=== PATIENT | male | born 1985 | race Caucasian/White ===

== ENCOUNTER → 2016-10-30 | Outpatient (CLI) | payer OTHER ==
--- NOTE | 2016-10-30 17:37 | DI ---
RIGHT SHOULDER, 10/30/2016 4:12 PM: Clinical History: Right anterior shoulder pain. Previous Exam: None at this facility. 4 views are submitted. There is no acute soft tissue, osseous, or joint abnormality. The visualized p ortions of the right lung including the apex are normal. Reading: Normal right shoulder exam.
== END ==
LOC: RAD 16:17
DX: M25.511 Pain in right shoulder (principal); F17.210 Nicotine dependence, cigarettes, uncomplicated
CPT/HCPCS: 73030

== ENCOUNTER → 2016-12-12 | Outpatient (CLI) | payer OTHER ==
--- NOTE | 2016-12-12 17:33 | DI ---
MRI RIGHT SHOULDER SCAN, 12/12/2016 7:57 AM: Clinical History: Unspecified rotator cuff tear. Previous Exam: None at this facility. Technique: Axial, coronal, and sagittal fat saturated PD; axial gradient FE; coronal fat saturatedT2 weighted; sagittal T2 weighted. There is no soft tissue edema or joint effusion. A small amount of fluid is in the subacromion bursa. There is only minimal arthrosis present in the patient has a type I acromion. There is tendinosis of the supraspinatus muscle with a small focal area of hyperintensity within the tendon substance consi stent with a small interstitial tear that would not be visible at arthroscopy. There is a similar sma ll interstitial tear in the conjoined tendon. Mild arthrosis is present in the infraspinatus tendon. The teres minor tendon is normal. There is an articular surface partial tear of the subscapularis ten don just at the insertion on the humeral head. There is a longitudinal tear or split in the tendon of the long head of the biceps muscle from the proximal humerus extending superiorly into the rotator i nterval but not extending to the biceps anchor. There is no subluxation of the tendon indicating the biceps jose l is intact. There is absence of the anterosuperior portion of the labrum with a high att achment of the anterior limb of the IGHL. The remainder of the labrum is normal. There is no muscle a trophy. Readin. There is a small articular surface tear of the subscapularis tendon near the attachment to the hu meral head and this measures approximately 4 x 6 mm in transverse and longitudinal measurements. Ther e is a longitudinal split in the tendon of the long head of the biceps muscle in the extra-articular portion and extending superiorly to the proximal portion of the rotator interval. The biceps jose l m echanism is intact. Interstitial tears are present in the supraspinatus and conjoined tendons. Mild t endinosis is noted in the infraspinatus tendon with mild arthrosis of the AC joint. 2. The teres minor tendon and glenoid labrum are normal. There is a type I acromion.
== END ==
LOC: MRI 07:50
PROVIDERS: ATTEND Orthopaedic Surgery
DX: M75.101 Unspecified rotator cuff tear or rupture of right shoulder, not specified as traumatic (principal); S46.011A Strain of muscle(s) and tendon(s) of the rotator cuff of right shoulder, initial encounter; M19.011 Primary osteoarthritis, right shoulder
CPT/HCPCS: 73221

== ENCOUNTER 2017-02-07 10:52 | Day surgery (SDC) | payer OTHER ==
[~2017-02-07 10:52] MED LIST: Lactated Ringers 1,000 ML PRIMARY IV ONE; ceFAZolin Inj 2gm (Premix) 50 ML IV ONE
[2017-02-07] MEDS ORDERED: LIDOCAINE W/ SODIUM BICARB 0.5 ML SYR ONE (11:51)
[2017-02-07 11:52] VITALS: RESP 20
[2017-02-07] MEDS ORDERED: DEXAMETHASONE SOD PHOSPHATE 4 MG/1 ML VIAL ONE (12:19)
[2017-02-07] MEDS ORDERED: fentaNYL Inj 250 MCG/5 ML VIAL ONE (12:19)
[2017-02-07] MEDS ORDERED: LIDOCAINE 2%/ EPI 1:200,000 - 20 ML VIAL ONE (12:19)
[2017-02-07] MEDS ORDERED: MIDAZOLAM 5 MG/1 ML ONE (12:19)
[2017-02-07] MEDS ORDERED: BUPivacaine Inj 0.5% PF (5mg/ml) 30ml vial ONE (12:19)
[2017-02-07] MEDS ORDERED: EPINEPHrine Inj (1:1,000) 30mg/30ml vial ONE (12:22)
[2017-02-07] MEDS ORDERED: Ropivacaine 0.2% VIAL 20 ML ONE (12:22)
[2017-02-07] MEDS ORDERED: LIDOCAINE MPF 2% - 5 ML (20 MG/1 ML) ONE (12:44)
[2017-02-07] MEDS ORDERED: Lactated Ringers 1,000 ML PRIMARY IV ONE ×2 (13:34→14:35)
--- NOTE | 2017-02-07 14:10 | CRNA.PROCE ---
Nerve Block Documentation - - Type of Nerve Block Used: Right Interscalene Block Moniters Used During Block: EKG, SPO2, NIBP Oxygen Sumpplented: Yes Sedation Used - Enter Amount in Comment Field: Midazolam (mg): Yes (3mg), Fentanyl (mcg): Yes (50mcg) Skin Prep Used: ChloroPrep Draped: No Technique: Nerve Stimulator Nerve Block Needle Used: 40 mm ProBlk II Stimulation Hz: 2 Stimulation Staring mA: 1.2 Stimulation Ending mA: 0.4 Local Anesthetic - Enter Amt in Comment Field: 0.5 % Bupivacaine Plain (mL): Yes (20ml), 2 % Xylocaine with Epinephrine 1:200,000 (mL): Yes (20ml) Additives to Nerve Blocks: Dexamethasone (mL): Yes (2ml(8mg))
[2017-02-07] MEDS ORDERED: diphenhydrAMINE 25 MG CAPSULE PO PRN (14:42)
[2017-02-07] MEDS ORDERED: NORMAL SALINE 10 ML SYRINGE FLUSH IVP PRN (14:42)
[2017-02-07] MEDS ORDERED: BISACODYL 5 MG TABLET PO PRN (14:42)
[2017-02-07] MEDS ORDERED: MAG HYDROX/AL HYDROX/SIMETH 30 ML SUSP PO PRN (14:42)
[2017-02-07] MEDS ORDERED: CALCIUM CARBONATE 500 MG (TUMS) CHEWABLE TABLET PO PRN (14:42)
[2017-02-07] MEDS ORDERED: Ondansetron ODT Tab 8 MG TAB PO PRN (14:42)
[2017-02-07] MEDS ORDERED: Prochlorperazine Tab 10 MG TAB PO PRN (14:42)
[2017-02-07] MEDS ORDERED: IBUPROFEN 400 MG TABLET PO PRN (14:42)
[2017-02-07] MEDS ORDERED: ACETAMINOPHEN 325 MG TABLET PO PRN (14:42)
[2017-02-07] MEDS ORDERED: BISACODYL 10 MG SUPPOSITORY RECTAL PRN (14:42)
[2017-02-07] MEDS ORDERED: ONDANSETRON 4 MG/2 ML VIAL IVP PRN (14:42)
[2017-02-07] MEDS ORDERED: HYDROcodone-APAP 7.5 MG-325 MG TABLET PO PRN (14:57)
[2017-02-07] MEDS ORDERED: MORPHINE SULFATE 2 MG/1 ML IVP PRN (14:57)
[2017-02-07] MEDS ORDERED: Lactated Ringers 1,000 ML PRIMARY IV SCH (15:00)
[2017-02-07 16:28] VITALS: TEMP 97.9
--- NOTE | 2017-02-10 15:27 | OPS SHOULD ---
Diagnosis : Right Biceps Tenodesis Referral Reason: Instruction in Activities of Daily Living/Shoulder Cryo Cuff O: The patient was instructed in activities of daily living including dressing and bathing as well as shoulder do's and don'ts. The patient was issued a cryo cuff for the right shoulder and instructed in its proper use and care. P: No further therapy is indicated at this time. The patient will begin outpatient physical therapy. KRISTA
== END 2017-02-07 16:15 | disposition home or self-care (01) ==
LOC: SDSC 10:52
PROVIDERS: ATTEND Orthopaedic Surgery
DX: M75.41 Impingement syndrome of right shoulder (principal); M75.21 Bicipital tendinitis, right shoulder
CPT/HCPCS: 23430; 29822; 97535; J0171; J0690; J2704; J2795; J3010; J1100; J2001; J2250; J3490; J7120

== ENCOUNTER 2017-05-16 14:05 | Emergency (ER) | payer OTHER ==
[2017-05-16] MEDS ORDERED: ASPIRIN 81 MG (BABY) CHEWABLE TABLET PO ONE (14:20)
[2017-05-16] MEDS ORDERED: NORMAL SALINE 10 ML SYRINGE FLUSH IVP PRN (14:20)
--- NOTE | 2017-05-16 14:22 | EKG ---
[address] [address] Measurements Intervals [place] Rate: 85 P: 74 VA: 142 QRS: 81 QRSD: 90 T: 65 QT: 358 QTc: 400 Interpretive Statements SINUS RHYTHM No previous ECG available for comparison Electronically Signed On 05-17-17 10:34:18 MDT by Jorge Mcguire [email or web address]
[2017-05-16 14:31] LABS: HEMATOCRIT 46.9 % (42.0-52.0); HEMOGLOBIN 16.6 g/dL (14.0-18.0); MEAN CORPUSCULAR HEMOGLOBIN 30.4 PG (27-31); MEAN CORPUSCULAR HGB CONC 35.4 g/dL (33-37); MEAN CORPUSCULAR VOLUME 85.9 FL (80-90); MEAN PLATELET VOLUME 9.5 FL (7.4-12.2); RED BLOOD COUNT 5.46 10^6/uL (4.70-6.10)
[2017-05-16 14:40] VITALS: RESP 16; TEMP 98.1
[2017-05-16] MEDS ORDERED: Sodium Chloride 0.9% 1,000 ML PRIMARY IV ONE (14:41)
[2017-05-16 14:46] LABS: BLOOD UREA NITROGEN 10 mg/dL (7-22); CALCIUM 9.4 mg/dL (8.7-10.7); EST GLOMERULAR FILTRATION > 60 (>60 ml/min/1.73m(2)); SERUM ALBUMIN 4.3 g/dL (3.5-4.8)
[2017-05-16 14:47] LABS: BUN/CREATININE RATIO 10.6 (6-20); CREATINE KINASE MB 0.48 NG/ML (0.00-5.00)
[2017-05-16 14:48] LABS: TROPONIN I < 0.012 ng/mL (< 0.040)
[2017-05-16 14:52] LABS: PLATELET MORPHOLOGY COMMENT NORMAL MORPHOLOGY (NORM); RBC MORPHOLOGY COMMENT NORMAL MORPHOLOGY (NORM); WBC MORPHOLOGY COMMENT NORMAL MORPHOLOGY (NORM)
[2017-05-16 14:53] LABS: BAND NEUTROPHILS % 0 % (0-10); BASOPHILS % (MANUAL) 1 % (0-1); EOSINOPHILS % (MANUAL) 4 % (0-8); LYMPHOCYTES % (MANUAL) 32 % (10-50); MONOCYTES % (MANUAL) 7 % (0-12); NEUTROPHILS % (MANUAL) 56 % (50-80)
[2017-05-16] MEDS ORDERED: Sodium Chloride 0.9% 1,000 ML ONE (17:33)
--- NOTE | 2017-05-16 18:01 | PDOC ---
Chest Pain HPI - General Chief Complaint: Chest Pain Stated Complaint: right sided chest pain Date Seen by Provider: 05/16/17 Time Seen by Provider: 14:12 Source: Patient Exam Limitations: POSITIVE: No limitations Treatment Prior to Arrival: REPORTS: None Nurse's Notes Reviewed & Considered: Yes - History of Present Illness Initial Comments: The patient is a 32-year-old male. He presents to the emergency room complaining of pleuritic chest pain, right anterior thorax for the past week. He states his pain is sometimes exacerbated by lying down. He states it is definitely exacerbated by deep inspiration. He's had no history of trauma; no fevers or chills. No cough. He smokes. He has no known cardiopulmonary history. History of migraine headaches. He had surgery for a torn right bicep muscle 3 months ago. No dyspnea. No hemoptysis. Body Location Affected: REPORTS: Chest Timing: REPORTS: Constant Duration: <1 week (Approximately one week) Severity: Moderate Persistent/Worse since (date): 05/10/17 Context: REPORTS: Rest Quality: REPORTS: "Pain" (Pleuritic) Radiation: REPORTS: None Associated Symptoms: REPORTS: Other Modifying Factors: improves with: Deep breathing Similar Symptoms Previously: No Recently seen/treated/hospitalized: No Any Prior Injuries Related to Current Complaint?: No - Patient Home Medications Home Medications: Home Medications Fluoxetine HCl 1 cap PO QD #90 cap 07/25/16 Omeprazole 20 mg PO QD #90 tab-cap 07/25/16 Sumatriptan Succinate 50 mg PO ONCE PRN #10 tab 07/25/16 - Patient Allergies Allergies/Adverse Reactions: Allergies Allergy/AdvReac Type Severity Reaction Status Date / Time lidocaine AdvReac Intermediate CAPILLARY Verified 05/16/17 14:13 COLAPSE Past Medical History - heen HEENT History: Denies History Cardiovascular History: Denies History Respiratory History: Denies History Gastrointestinal History: GERD Genitourinary History: Denies History Endocrine History: Denies History Musculoskeletal History: Back Pain Prosthesis or Implant: No Additional Musculoskeletal History: SCIATICA. RT BICEP REPAIR 2017 Neurological History: Denies History, Migraines Blood Disorders: Denies History Psychiatric History: Depression History of Sexually Transmitted Diseases: No Cancer History: Denies History In Past Year Been Physically Harmed or Verbally Threatened: No History of MDRO: No History of Other Communicable Diseases: No Tobacco Use: Current Every Day Smoker Alcohol Use: Rarely Substance Use Type: None Previous Surgical History: Yes Type / Date of Surgery: EAR TUBES/ SEPTOPLASTY/TONSILLECTOMY/ RT BICEP Anesthesia Reactions: No Malignant Hyperthermia: No Significant Family History: Cancer, Diabetes Additional Family History: GERD Past Medical History Reviewed: Reviewed - No Changes ROS - Limitations ROS Limitations: No Limitations Constitution: REPORTS: Denies Symptoms Cardiovascular: REPORTS: Chest Pain Respiratory: REPORTS: Hurts To Breathe Neurological: REPORTS: Denies Neuro Symptoms Gastrointestinal: REPORTS: Denies GI Symptoms Endocrine: REPORTS: Denies Symptoms Musculoskeletal: REPORTS: Denies MS Symptoms Genitourinary: REPORTS: Denies Symptoms Eyes: REPORTS: Denies Symptoms ENT: REPORTS: Denies Symptoms Skin: REPORTS: Denies Skin Symptoms Lympathic: REPORTS: Denies Lympathic Symptoms Immunologic: POSITIVE: Denies Symptoms Psychiatric: POSITIVE: Denies Psych Symptoms Chest Pain PE - General Appearance General Appearance: REPORTS: Alert, Cooperative, No Acute Distress, No Evidence of Trauma - HEENT HEENT: POSITIVE: Head Inspection Nml, Eyes Inspection Nml, Ears Inspection Nml, Nose Inspection Nml, Oral/Dental Inspect. Nml, Pharynx Inspect. Nml, PERRL, EOMI - Neck Neck: REPORTS: Normal Inspection, No Carotid Bruit - Respiratory Respiratory: REPORTS: No Respiratory Distress, Breath Sounds Normal, Chest Non- Tender - Cardiovascular Cardiovascular: REPORTS: Regular Rate and Rhythm, Heart Sounds Normal, Equal Pulses, Strong Pulses, No Murmur, No Gallop, No Friction Rub, No JVD Peripheral Pulses: Radial (R): 2+, Radial (L): 2+ - Abdomen Abdomen: Soft: (All Quadrants), Normal Bowel Sounds: (All Quadrants), Denies Tenderness: (All Quadrants), No Splenomegaly: (All Quadrants), No Hepatomegaly: (All Quadrants), No Guarding: (All Quadrants), No Rebound: (All Quadrants), No Palpable Pulse: (All Quadrants), No Palpabale Mass: (All Quadrants), No Distention: (All Quadrants), No Rigidity: (All Quadrants) - Skin Skin: REPORTS: Intact, Normal For Race, Warm, Dry, No Rash - Extremities Extremity: Non-Tender: (All Extremities), Normal ROM: (All Extremities), Normal Inspection: (All Extremities) - Neurological / Psychological Neurological: POSITIVE: Oriented X3, 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 Lab Results Reviewed: Yes (normal d-dimer and troponin) Lab Results:: Laboratory Results 05/16/17 Range/Units 14:23 WBC 9.41 (4.8-10.8) 10^3/uL RBC 5.46 (4.70-6.10) 10^6/uL Hgb 16.6 (14.0-18.0) g/dL Hct 46.9 (42.0-52.0) % MCV 85.9 (80-90) FL MCH 30.4 (27-31) PG MCHC 35.4 (33-37) g/dL RDW Std Deviation 41.0 (39-50) fL RDW Coeff of [place] 13.3 (11.5-14.5) % Plt Count 288 (140-350) 10*3/uL MPV 9.5 (7.4-12.2) FL Neutrophils % (Manual) 56 (50-80) % Band Neutrophils % 0 (0-10) % Lymphocytes % (Manual) 32 (10-50) % Monocytes % (Manual) 7 (0-12) % Eosinophils % (Manual) 4 (0-8) % Basophils % (Manual) 1 (0-1) % Metamyelocytes % Not Reportable Myelocytes % Not Reportable Promyelocytes % Not Reportable Blast Cells Not Reportable WBC Morphology Comment Normal morphology (NORM) Plt Morphology Comment Normal morphology (NORM) RBC Morph Comment Normal morphology (NORM) D-Dimer < 0.19 (0.00-0.59) mg/L Sodium 142.0 (135-145) meq/L Potassium 3.9 (3.8-5.2) meq/L Chloride 108 (98-112) meq/L Carbon Dioxide 24 (23-33) meq/L Anion Gap 10.0 (5-20) BUN 10 (7-22) mg/dL Creatinine 0.9 (0.70-1.50) mg/dL Estimated GFR > 60 (>60 ml/min/1.73m(2)) BUN/Creatinine Ratio 10.6 (6-20) Glucose 102 (78-110) mg/dL Calculated Osmolality 292.00 (267-292) mOsm/kg Calcium 9.4 (8.7-10.7) mg/dL Total Bilirubin 0.6 (0.3-1.2) mg/dL AST 24 (21-57) IU/L ALT 41 (21-72) IU/L Alkaline Phosphatase 56 (38-126) IU/L CK-MB (CK-2) 0.48 (0.00-5.00) NG/ML Troponin I < 0.012 (< 0.040) ng/mL Total Protein 7.1 (6.1-8.0) g/dL Albumin 4.3 (3.5-4.8) g/dL Globulin 2.8 (2.50-4.10) g/dL Albumin/Globulin Ratio 1.50 (1.3-2.0) mg/g EKG Interpreted/Reviewed By Me:: Yes (normal) EKG Interpretation:: POSITIVE: Normal Sinus Rhythm, Normal Rate, Normal Intervals, Normal [place], Normal QRS, Normal ST/T - Patient's Progress Pain Medication Addressed: POSITIVE: Yes (Recommended Aleve, 2 twice daily) School/Work Release Addressed: POSITIVE: Not Applicable Re-Examine Time: 15:35 Status: POSITIVE: Unchanged, Re-Examined Quality Measure Initiative: CP/AMI: POSITIVE: EKG, ASA - Consult Counseled: POSITIVE: Patient, RE: Lab Results, RE: Radiology Results, RE: DX, RE : Need for F/U Patient Care Time - Estimated PCT Patient Care Time (In Minutes): 50 Vital Signs - Recent Vital Signs Vital Signs: Vital Signs (Last 8 hours) Temp Pulse Resp BP Pulse Ox 05/16/17 14:10 90 05/16/17 14:07 98.1 F 92 16 122/84 94 - VS Reviewed Vital Signs Reviewed: Yes Discharge Clinical Impression: Pleurisy without effusion Discharge Disposition: Discharged to Home Condition: Good Patient Instructions Given at Discharge: Pleurisy (ED) Additional Instructions: Your electrocardiogram, chest x-ray, and blood tests are all normal. I see no evidence of a heart problems or blood clots in the lung. I believe you have pleurisy, which is a condition which will cause chest discomfort/pain with inspiration. Please apply warm compresses to your right chest. Take Aleve, 2 every 12 hours. Follow-up with your primary care provider. Return here anytime if condition worsens in any way whatsoever. Follow Up With: JULIUS BUSTAMANTE [Primary Care Provider] - (Instructions as above. Follow-up with your primary care provider. Return anytime if condition worsens.)
--- NOTE | 2017-05-18 21:20 | DI ---
PA /LATERAL CHEST X-RAY, 05/16/2017 2:20 PM : Clinical History: Chest pain Previous Exam: None at this facility. There is no acute soft tissue or bony abnormality. Heart size is normal. Lungs are clear. Mediastinal structures are normal. There are no pulmonary nodules. IMPRESSION: Normal chest x-ray.
== END 2017-05-16 15:35 | disposition home or self-care (01) ==
LOC: ER 14:05
DX: R09.1 Pleurisy (principal); R07.9 Chest pain, unspecified
CPT/HCPCS: 71020; 80053; 82553; 84484; 85007; 85379; 93005; 93010; 99283; J7030